=== PATIENT | male | born 1930 | race Caucasian/White ===

== ENCOUNTER 2017-11-11 06:06 | Day surgery (SDC) | payer MEDICARE, OTHER ==
[2017-11-05 09:06] VITALS: BMI 33.8
[~2017-11-11 06:06] MED LIST: MOXIFLOXACIN HCL 0.5% DROPS 3 ML BTL OP ONE; TETRACAINE 0.5% OPHTH (PF) DROPS 4 ML BTL OP ONE; TIMOLOL 0.5% OPHTH DROPS 5 ML BTL OP ONE
[2017-11-11] MEDS: PHENYLEPHRINE 2.5% OPHTH DRP 2ML OP NR ×3 (06:29→06:47)
[2017-11-11] MEDS ORDERED: LIDOCAINE 1% 20 ML VIAL (10MG/ML) FOR IV START INTRADERMA PRN (06:30)
[2017-11-11] MEDS ORDERED: HYDROmorphone 0.5 MG/0.5 ML SYRINGE IVP PRN (06:30)
[2017-11-11] MEDS ORDERED: LACTATED RINGERS 1,000 ML IV SCH (06:30)
[2017-11-11] MEDS: CYCLOPENTOLATE 1% OPHTH SOLN 2 ML BTL OP ONE ×3 (06:32→06:51)
[2017-11-11 06:34] VITALS: TEMP 98.3
[2017-11-11] MEDS ORDERED: BALANCED SALT IRRIG SOLN COMB2 15 ML IRRIG.SOLN INTRAOCULA ONE (07:38)
[2017-11-11] MEDS ORDERED: LIDOCAINE 1% (PF) 10MG/ML VIAL MISCELLANE ONE (07:40)
[2017-11-11] MEDS ORDERED: DUOVISC KIT (GREEN BOX) INTRAOCULA ONE (07:40)
[2017-11-11] MEDS ORDERED: EPINEPHrine (PF) 0.3 ML in BALANCED SALT IRRIG SOLN COMB2 500 ML IRRIGATION ONE (07:41)
--- NOTE | 2017-11-11 07:56 | P.OP ---
Date of Procedure: 11/11/17 Preoperative Diagnosis: NS & PSC Postoperative Diagnosis: same Procedure(s) Performed: PIOL, OD Implants: PCB00 25.00 Anesthesia: MAC Surgeon: Junior Hernandez Estimated Blood Loss (ml): 0 Pathology: none sent Condition: stable Disposition: same day Indications for Procedure: blurry vision Operative Findings: NO complications
[2017-11-11 08:22] VITALS: BP 160/76; PULSE 56; RESP 16
--- NOTE | 2017-11-11 18:54 | OP ---
OPERATIVE REPORT DATE OF SURGERY: November 11, 2017. PROCEDURE PERFORMED: Phacoemulsification of cataract and intraocular lens implant of the right eye. SURGEON: Dr. 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 POSTOPERATIVE DIAGNOSIS:: Nuclear sclerosis. Cortical sclerosis. OPERATION:: Clear cornea phacoemulsification of cataract OD eye. ESTIMATED BLOOD LOSS:: Zero. SPECIMEN TAKEN:: None. NARRATIVE:: After obtaining the appropriate consent, the patient was brought to the Operating Room where the patient was placed under cardiac monitoring and prepped and draped in the usual sterile manner. At the 11 o'clock position a 15 degree super sharp blade was used to create a paracentesis followed by instillation of 1% Xylocaine MPF 50:50 mix with BSS into the anterior chamber. This was followed by Duovisc to stabilize the anterior chamber. At the 9 o'clock position a self-sealing corneal flap incision was created using 2.8 mm radha keratome. A cystatome was used to initiate a continuous tear capsulorrhexis which was completed with the Utrata forceps. A Binkhorst cannula was used to hydrodissect the lens nucleus followed by hydrodelineation. Phacoemulsification of the lens was performed utilizing phacochop in 40.35 Seconds at 18% power. The remaining cortical material was removed using the irrigation aspiration mode followed by additional 1% Xylocaine MPF into the anterior chamber followed by viscoelastic to stabilize the capsular bag. An ALEK PZB 00 25.5 diopter posterior chamber lens was placed into the capsular bag without difficulty. The remaining viscoelastic material was removed from the anterior chamber with the irrigation/aspiration. Balanced salt solution was used to normalize the intraocular pressure. The incision was checked for watertight integrity. The patient then received two drops of 0.5% timolol followed by two drops Vigamox, was lightly patched and shielded in the usual manner. There were no complications from the procedure. The patient tolerated the procedure well and was returned to recovery in good condition. MMODL / IJN: [id number] /
== END 2017-11-11 08:36 | disposition home or self-care (01) ==
LOC: OR 06:06
PROVIDERS: ATTEND Ophthalmology
DX: H25.13 Age-related nuclear cataract, bilateral (principal); H35.3211 Exudative age-related macular degeneration, right eye, with active choroidal neovascularization; H35.3122 Nonexudative age-related macular degeneration, left eye, intermediate dry stage; H52.03 Hypermetropia, bilateral; H52.4 Presbyopia; I11.9 Hypertensive heart disease without heart failure; Z79.01 Long term (current) use of anticoagulants; Z79.899 Other long term (current) drug therapy
CPT/HCPCS: 66984; C1780; J0171; J2001

== ENCOUNTER 2017-11-25 07:11 | Day surgery (SDC) | payer MEDICARE, OTHER ==
[2017-11-20 15:22] VITALS: BMI 31.9
[~2017-11-25 07:11] MED LIST changes: +LACTATED RINGERS 1,000 ML IV SCH; +PHENYLEPHRINE 2.5% OPHTH DRP 2ML OP NR
[2017-11-25] MEDS: CYCLOPENTOLATE 1% OPHTH SOLN 2 ML BTL OP ONE ×4 (07:44→07:56)
[2017-11-25 07:47] VITALS: TEMP 97.2
[2017-11-25 07:59] LABS: Glucose,Whole Blood 127 mg/dL (75-99)
[2017-11-25] MEDS ORDERED: LIDOCAINE 1% (PF) 10MG/ML VIAL SQ ONE (08:28)
[2017-11-25] MEDS ORDERED: HYALURONATE SODIUM INTRAOCULAR 1 EACH SYRINGE (12MG/ML) INTRAOCULA ONE (08:28)
[2017-11-25] MEDS ORDERED: BALANCED SALT IRRIG SOLN COMB2 15 ML IRRIG.SOLN IRRIGATION ONE (08:28)
[2017-11-25] MEDS ORDERED: MIDAZOLAM 2 MG/2 ML VIAL ONE (08:33)
[2017-11-25] MEDS ORDERED: EPINEPHrine (PF) 0.3 ML in BALANCED SALT IRRIG SOLN COMB2 500 ML IRRIGATION ONE (08:42)
--- NOTE | 2017-11-25 08:56 | P.OP ---
Date of Procedure: 11/25/17 Preoperative Diagnosis: NS & CS Postoperative Diagnosis: same Procedure(s) Performed: PIOL, OS Implants: PCB00 24.50 Anesthesia: MAC Surgeon: Junior Hernandez Estimated Blood Loss (ml): 0 Pathology: none sent Condition: stable Disposition: same day Indications for Procedure: blurry vision Operative Findings: No complications
[2017-11-25 09:52] VITALS: BP 150/80; PULSE 58; RESP 20
--- NOTE | 2017-11-25 11:28 | OP ---
OPERATIVE REPORT DATE OF SERVICE: 11/25/2017 SURGEON: Junior Hernandez MD CLEAN OUT DRILLER: PREOPERATIVE DIAGNOSIS: Nuclear sclerosis, cortical sclerosis. POSTOPERATIVE DIAGNOSIS: Nuclear sclerosis, cortical sclerosis. OPERATION: Phacoemulsification of cataract and intraocular lens implant of the left eye. ESTIMATED BLOOD LOSS: Zero. SPECIMEN TAKEN: None. NARRATIVE: After obtaining the appropriate consent, the patient was brought to the operating room where the patient was placed under cardiac monitoring and prepped and draped in the usual sterile manner. At the 5 o'clock position a 15 degree super sharp blade was used to create a paracentesis followed by instillation of 1% Xylocaine MPF 50:50 mix with BSS into the anterior chamber. This was followed by Amvisc to stabilize the anterior chamber. At the 3 o'clock position a self-sealing corneal flap incision was created using 2.8 mm radha keratome. A cystotome was used to initiate a continuous tear capsulorrhexis which was completed with the Utrata forceps. A Binkhorst cannula was used to hydrodissect the lens nucleus followed by hydrodelineation. Phacoemulsification of the lens was performed utilizing phaco chop in 19.54 seconds at 14% power. The remaining cortical material was removed using the irrigation aspiration mode followed by additional 1% Xylocaine MPF into the anterior chamber followed by viscoelastic to stabilize the capsular bag. An ALEK PCB00 24.5 diopters posterior chamber lens was placed into the capsular bag without difficulty. The remaining viscoelastic material was removed from the anterior chamber with the irrigation/aspiration. Balanced salt solution was used to normalize the intraocular pressure. The incision was checked for watertight integrity. The patient then received two drops of 0.5% timolol followed by two drops Vigamox, was lightly patched and shielded in the usual manner. There were no complications from the procedure. The patient tolerated the procedure well and was returned to recovery in good condition. MMODL / IJN: [id number] /
== END 2017-11-25 10:00 | disposition home or self-care (01) ==
LOC: OR 07:11
PROVIDERS: ATTEND Ophthalmology
DX: H25.12 Age-related nuclear cataract, left eye (principal); H25.012 Cortical age-related cataract, left eye; H35.3211 Exudative age-related macular degeneration, right eye, with active choroidal neovascularization; H35.3122 Nonexudative age-related macular degeneration, left eye, intermediate dry stage; H52.03 Hypermetropia, bilateral; H52.4 Presbyopia; Z96.1 Presence of intraocular lens; I11.9 Hypertensive heart disease without heart failure; Z86.718 Personal history of other venous thrombosis and embolism; Z85.72 Personal history of non-Hodgkin lymphomas; Z79.01 Long term (current) use of anticoagulants; Z79.899 Other long term (current) drug therapy; Z96.653 Presence of artificial knee joint, bilateral
CPT/HCPCS: 66984; C1780; J2250; J0171; J2001